=== PATIENT | female | born 1990 | race Caucasian/White ===

== ENCOUNTER 2023-07-11 11:18 | Outpatient (REF) | payer MEDICAID, SELFPAY ==
[2023-07-11 19:17] LABS: HCT 44.6 % (36.0-46.0); HGB 14.2 g/dL (11.2-15.7); MCH 29.3 pg (27.0-33.0); MCHC 31.8 % (32.0-36.0); MCV 92 fL (80-95); MPV 10.5 fL (8.0-11.0); Platelet Count 447 10^3/uL (130-400); RBC 4.84 10^6/uL (3.93-5.22); RDW 12.6 % (11.7-14.6); RDW-SD 42.7 fL; WBC 6.17 10^3/uL (4.4-10.8)
[2023-07-11 19:31] LABS: ALT 23 U/L (14-59); AST 19 U/L (15-37); Albumin 4.5 g/dL (3.4-5.0); Alkaline Phosphatase 77 U/L (46-116); Anion Gap 9.5 mmol/L (3-11); BUN 9 mg/dL (7-18); Bilirubin, Total 0.4 mg/dL (0.2-1.0); CO2 27.5 mmol/L (21.0-32.0); Calcium 9.8 mg/dL (8.5-10.1); Chloride 101 mmol/L (98-107); Estimated GFR 76.29 (mL/min/1.73m2); Glucose 109 mg/dL (74-106); LDL CHOLESTEROL 102 mg/dL (<100); Potassium 4.5 mmol/L (3.5-5.1); Sodium 138 mmol/L (136-145); TSH (W/Ref FT4) 0.83 uIU/mL (0.36-3.74)
[2023-07-15 14:23] LABS: ANA Interpretation Positive (Negative); ANA Titer Pattern 1:160 Speckled
[2023-07-16 15:57] LABS: Mitochondrial Ab, M2 <0.1 U
== END 2023-07-11 11:19 | disposition home or self-care (01) ==
LOC: NCHCN 11:18
PROVIDERS: Visit Provider Physician Assistant
DX: Z00.00 Encounter for general adult medical examination without abnormal findings (principal); Z83.79 Family history of other diseases of the digestive system
CPT/HCPCS: 80053; 83516; 83721; 85027; 84443; 86038

== ENCOUNTER 2025-08-17 15:11 | Outpatient (REF) | payer MEDICAID, SELFPAY ==
[2025-08-17 19:50] LABS: Abs Immature Grans 0.04 10^3/uL (0.0-0.06); HCT 36.1 % (36.0-46.0); HGB 11.3 g/dL (11.2-15.7); Immature Grans % 0.6 %; MCH 26.5 pg (27.0-33.0); MCHC 31.3 % (32.0-36.0); MCV 85 fL (80-95); MPV 12.5 fL (8.0-11.0); Platelet Count 285 10^3/uL (130-400); RBC 4.26 10^6/uL (3.93-5.22); RDW 15.8 % (11.7-14.6); RDW-SD 47.9 fL; WBC 6.99 10^3/uL (4.4-10.8)
[2025-08-17 20:11] LABS: ALT 98 U/L (14-59); AST 54 U/L (15-37); Albumin 2.5 g/dL (3.4-5.0); Alkaline Phosphatase 250 U/L (46-116); Anion Gap 10.6 mmol/L (3-11); BUN 7 mg/dL (7-18); Bilirubin, Total 0.3 mg/dL (0.2-1.0); CO2 23.4 mmol/L (21.0-32.0); Calcium 9.8 mg/dL (8.5-10.1); Chloride 104 mmol/L (98-107); Estimated GFR 98.48 (mL/min/1.73m2); Glucose 106 mg/dL (74-106); Potassium 3.7 mmol/L (3.5-5.1); Sodium 138 mmol/L (136-145); Total Protein 7.4 g/dL (6.4-8.2)
== END 2025-08-17 15:12 | disposition home or self-care (01) ==
LOC: NCHCN 15:11
PROVIDERS: Visit Provider Physician Assistant
DX: Z87.59 Personal history of other complications of pregnancy, childbirth and the puerperium (principal)
CPT/HCPCS: 80053; 85025